=== PATIENT | male | born 1950 | race Caucasian/White ===

== ENCOUNTER 2019-09-03 06:08 | Inpatient (IN) ==
[2019-09-03] MEDS ORDERED: Albuterol 2.5 MG/3 ML NEBULIZER IH PRN (06:24)
[2019-09-03] MEDS ORDERED: CeFAZolin Syr 2,000MG/20 ML 2,000 MG/20 ML SYRINGE IVPB ONE (06:24)
[2019-09-03] MEDS ORDERED: Ringers Solution, Lactated 1,000 ML IVC SCH ×2 (06:30→06:45)
[2019-09-03] MEDS ORDERED: *HR* OxyCODONE Immed Rel 5 MG TABLET PO PRN ×3 (06:39→12:01)
[2019-09-03] MEDS ORDERED: traMADol 50 MG TABLET PO PRN (06:39)
[2019-09-03] MEDS ORDERED: *HR* HYDROmorphone (PF) 1 MG/ML SYRINGE IVP PRN (06:39)
[2019-09-03] MEDS ORDERED: *HR* Promethazine 25 MG/ML VIAL IVP PRN (06:39)
[2019-09-03] MEDS ORDERED: NiCARdipine 2.5 MG/10 ML Syringe IVPB ONE (06:58)
[2019-09-03] MEDS ORDERED: *HR* FentaNYL (PF) 100 MCG/2 ML VIAL ONE (07:00)
[2019-09-03] MEDS ORDERED: *HR* Heparin 5,000 UNIT/ML VIAL ONE (07:00)
[2019-09-03] MEDS ORDERED: *HR* Succinylcholine 200 MG/10 ML VIAL IVP ONE (07:00)
[2019-09-03] MEDS ORDERED: *HR* Propofol 200 MG/20 ML VIAL IVP ONE (07:00)
[2019-09-03] MEDS ORDERED: *HR* PHENYLEPHRINE 1,000 MCG/10 ML SYRINGE IVP ONE (07:00)
[2019-09-03] MEDS ORDERED: *HR* Rocuronium Bromide 50 MG/5 ML VIAL ONE (07:00)
[2019-09-03] MEDS ORDERED: *HR* Midazolam HCl 2 MG/2 ML VIAL ONE (07:00)
[2019-09-03] MEDS ORDERED: Dexamethasone 4 MG/ML VIAL ONE (07:00)
[2019-09-03] MEDS ORDERED: Ondansetron 4 MG/2 ML VIAL ONE (07:00)
[2019-09-03] MEDS ORDERED: Lidocaine HCL 4 ML Topical Solution (Laryng-O-Jet Kit Sterile Pak) TP ONE (07:00)
[2019-09-03] MEDS ORDERED: Lidocaine -MPF 2% 2 ML VIAL ONE (07:00)
[2019-09-03] MEDS ORDERED: Heparin 1,000 UNITS/500 mL 1,000 ML ONE (07:19)
[2019-09-03] MEDS ORDERED: Isovue-300 50ML VIAL ONE (07:32)
[2019-09-03] MEDS ORDERED: Vancomycin 1,000 MG, Sodium Chloride IRRigation 1,000 ML IR ONE (07:45)
[2019-09-03] MEDS ORDERED: EPHEDrine 50 MG/ML VIAL ONE (08:03)
[2019-09-03] MEDS ORDERED: Calcium Gluconate 1,000 MG/10 ML VIAL ONE (08:41)
[2019-09-03] MEDS ORDERED: Acetaminophen IV 1,000 MG/100 ML INFUS..BTL ONE (09:38)
[2019-09-03] MEDS ORDERED: Neostigmine Methylsulfate 3 MG/3 ML SYRINGE ONE (09:53)
[2019-09-03] MEDS ORDERED: Azithromycin 250 MG TABLET PO SCH (12:01)
[2019-09-03] MEDS ORDERED: Acetaminophen 325 MG TABLET PO PRN ×2 (12:01)
[2019-09-03] MEDS ORDERED: *HR* HYDROcodone/Acet 5/325 mg TABLET PO PRN (12:01)
[2019-09-03] MEDS ORDERED: 0.9 % Sodium Chloride 1,000 ML IVC SCH (12:01)
[2019-09-03] MEDS ORDERED: Naloxone 0.4 MG/ML INJ IVP PRN (12:01)
[2019-09-03] MEDS ORDERED: *HR* Labetalol 20 MG/4 ML SYRINGE IVP PRN (12:01)
[2019-09-03] MEDS: *HR* Metoprolol 5 MG/5 ML VIAL IVP SCH ×2 (13:00→16:39)
[2019-09-03] MEDS: *HR* HYDROcodone/Acet 5/325 mg TABLET PO PRN ×2 (15:10→22:49)
[2019-09-03] MEDS ORDERED: Ascorbic Acid 500 MG TABLET PO SCH (18:00)
[2019-09-03] MEDS ORDERED: GLUCOSAMINE SULFATE DIPOT CHLR PO SCH (18:00)
[2019-09-03] MEDS ORDERED: [UNRECOGNIZED DRUG - OTHER] PO SCH (18:00)
[2019-09-03] MEDS ORDERED: Vitamin E 200 UNIT (90MG) CAPSULE PO SCH (18:00)
[2019-09-03] MEDS ORDERED: Aspirin Enteric Coated 81 MG Tablet PO SCH (18:00)
[2019-09-03] MEDS ORDERED: Cyanocobalamin (B-12) 1,000 MCG TABLET PO SCH (18:00)
[2019-09-03] MEDS ORDERED: Fenofibrate 54 MG TABLET PO SCH (18:00)
[2019-09-04] MEDS: *HR* Metoprolol 5 MG/5 ML VIAL IVP SCH ×2 (00:30→04:52)
[2019-09-04 02:05] LABS: Basophils % 0.1 %; Hematocrit 34.2 % (37.5-50.1); Hemoglobin 11.6 g/dL (12.9-16.9); Immature Granulocytes % 0.3 % (0-4); Lymphocytes # 1.2 K/mcL (0.6-4.6); Lymphocytes % 12.8 %; Mean Corpuscular HGB Conc 33.9 g/dL (31.6-35.5); Mean Corpuscular Hemoglobin 32.2 pg (28.0-33.3); Mean Platelet Volume 11.3 fL (9.4-12.4); Monocytes # 0.6 K/mcL (0.0-1.3); Monocytes % 6.8 %; Neutrophils # 7.4 K/mcL (1.6-8.9); Platelet Count 149 K/mcL (140-400); White Blood Count 9.2 K/mcL (4.3-11.1)
[2019-09-04 02:18] LABS: BUN/Creatinine Ratio 12 (6-26); Blood Urea Nitrogen 12 mg/dL (8-23); Carbon Dioxide 20 mEq/L (23-29); Chloride 104 mEq/L (98-107); Glucose 115 mg/dL (70-105); Osmolality,Calculated 279 (280-300); Sodium 134 mEq/L (136-145); eGFR For African Americans > 60 (> 60); eGFR For Non-African Americans > 60 (> 60)
[2019-09-04] MEDS ORDERED: *HR* Heparin 5,000 UNIT/ML VIAL SQ SCH ×2 (06:00)
[2019-09-04 07:17] VITALS: BP 130/72
[2019-09-04] MEDS ORDERED: Cholecalciferol (D-3) 1,000 UNIT (25MCG) TABLET PO SCH (09:00)
== END 2019-09-04 11:26 | disposition home or self-care (01) | DRG 253 ==
LOC: SAMDAY 06:08 → 2NNU 11:53
PROVIDERS: ADMIT Surgery; ATTEND Surgery